=== PATIENT | male | born 1990 ===

== ENCOUNTER 2017-02-28 02:23 | Emergency (ER) | payer MEDICAID ==
--- NOTE | 2017-02-28 03:01 | C.PDOC ---
History Of Present Illness patient presnts with right lower jaw pain, at root canal site which he had about 1 year ago., No f/c/n/v. dull throbbing pain Time Seen by Provider: 02/28/17 03:01 Chief Complaint (Nursing): Dental Pain History Per: Patient History/Exam Limitations: no limitations Onset/Duration Of Symptoms: Days Current Symptoms Are (Timing): Still Present Severity: Moderate Pain Scale Rating Of: 4 Quality: Positive for: Dull, Other (throbbing) Recent travel outside of the [place]: No Additional History Per: Patient Past Medical History Reviewed: Historical Data, Nursing Documentation, Vital Signs Vital Signs: Last Vital Signs Temp 97.5 F L 02/28/17 02:30 Pulse 81 02/28/17 02:30 Resp 16 02/28/17 02:30 BP 131/85 02/28/17 02:30 Pulse Ox 98 02/28/17 03:01 Family History: States: No Known Family Hx - Social History Hx Alcohol Use: Yes Hx Substance Use: No - Immunization History Hx Tetanus Toxoid Vaccination: No Hx Influenza Vaccination: No Hx Pneumococcal Vaccination: No Review Of Systems Constitutional: Negative for: Fever, Chills ENT: Positive for: Other (dental pain) Physical Exam - Physical Exam Appears: Non-toxic, No Acute Distress Skin: Warm, Dry Oral Mucosa: Moist, No Drooling Teeth: Caries Gingiva: Abscess (right lower) ED Course And Treatment O2 Sat by Pulse Oximetry: 98 Disposition Counseled Patient/Family Regarding: Studies Performed, Diagnosis, Need For Followup, Rx Given - Disposition Referrals: [facility] [Outside] Disposition: HOME/ ROUTINE Disposition Time: 03:01 Condition: FAIR Additional Instructions: Please follow up with your dentist Prescriptions: Penicillin VK [Penicillin VK Tab] 500 mg PO Q6H #40 tab traMADol [Ultram] 50 mg PO TID PRN #15 tab PRN Reason: Pain, Severe (8-10) Instructions: Dental Abscess (ED), Gingivostomatitis (ED) Forms: [facility] ([place]) - Clinical Impression Clinical Impression: Dental abscess
[2017-02-28 03:50] VITALS: BP 120/83; PULSE 64; RESP 20; TEMP 97.6; O2SAT 99
== END 2017-02-28 03:50 | disposition home or self-care (01) ==
LOC: C.ER 02:23
DX: K04.7 Periapical abscess without sinus (principal)